=== PATIENT | female | born 1985 | race Asian ===

== ENCOUNTER → 2024-02-09 | Outpatient (CLI) | payer BC, SELFPAY ==
--- NOTE | 2024-02-09 12:00 | XR_ITS ---
Examination: Abdomen sonogram, complete Date and time of exam: February 09, 2024 1230 hours INDICATIONS: Right upper abdominal pain beginning 6 months ago. Technique: Multiple real-time grayscale transabdominal sonographic images of the abdomen have been obtained. Findings: Normal gallbladder Normal common bile duct 0.2 cm Pancreatic head 2.5 cm Aorta not enlarged Liver 15.6 cm fatty infiltration irregular contour no focal liver lesions Portal venous flow present Patent IVC Right kidney 10.7 x 4.9 x 5.4 cm cortex 1.4 cm Left kidney 10.5 x 5.7 x 5.4 cm cortex 2.1 cm Mild renal parenchymal scar formation Spleen 8.2 cm IMPRESSION: Normal gallbladder Fatty liver, suspect primary hepatocellular disease
== END | disposition home or self-care (01) ==
LOC: CDIM 12:15
PROVIDERS: Referring Provider Family Medicine; Visit Provider Family Medicine
DX: K76.0 Fatty (change of) liver, not elsewhere classified (principal)
CPT/HCPCS: 76700

== ENCOUNTER → 2025-01-04 | Outpatient (CLI) | payer BC, SELFPAY ==
--- NOTE | 2025-01-04 14:45 | XR_ITS ---
Examination: Pelvic ultrasound, transabdominal, complete Technique: Transabdominal ultrasound of the pelvis performed using grayscale imaging Date and time of exam: January 04, 2025, 1447 hours INDICATIONS: Lower back and pelvic pain beginning 1 month ago FINDINGS: Uterus 9.2 cm endometrial stripe 14 mm. No uterine mass or intrauterine gestation Mild fluid in the cul-de-sac Right ovary 3.6 cm arterial flow Left ovary 3.3 cm arterial flow IMPRESSION: Negative study
== END | disposition home or self-care (01) ==
PROVIDERS: PCP Family Medicine; Referring Provider Family Medicine; Visit Provider Family Medicine
DX: R10.20 Pelvic and perineal pain unspecified side (principal); M54.50 Low back pain, unspecified
CPT/HCPCS: 76856